=== PATIENT | female | born 1950 | race African-American/Black ===

== ENCOUNTER 2022-06-08 13:51 | Inpatient (IN) | payer MEDICARE, OTHER ==
[~2022-06-08] VITALS: Ht 162.6 cm; Wt 81.6 kg
[2022-06-08] MEDS ORDERED: ACETAMINOPHEN 325MG TABLET PO STA (14:21)
[2022-06-08] MEDS ORDERED: SODIUM CHLORIDE 0.9% 1,000 ML IV ONE (14:30)
[2022-06-08 14:48] LABS: CHLORIDE 109 mEq/L (98-107)
[2022-06-08 14:51] LABS: BASOPHILS % 0.6 % (0.0-2.0); EOSINOPHILS % 5.8 % (0.0-5.0); HEMATOCRIT. 49.5 % (36.0-48.0); LYMPHOCYTES % 31.8 % (20.0-50.0); MEAN CORPUSCULAR HEMOGLOBIN 30.6 pg (28.0-32.0); MEAN CORPUSCULAR VOLUME 94.5 fL (81.0-99.0); MONOCYTES % 9.5 % (2.0-8.0); NEUTROPHILS % 52.3 % (40.0-76.0); PLATELET 141 x1000/uL (130-400); RED BLOOD CELL COUNT 5.24 mill/uL (4.2-5.4); RED CELL DISTRIBUTION WIDTH 14.2 % (11.6-14.6)
[2022-06-08 16:20] LABS: CLARITY URINE CLEAR (CLEAR); COLOR URINE YELLOW (YELLOW); KETONES URINE NEGATIVE (NEGATIVE); LEUKOCYTE ESTERASE URINE NEGATIVE (NEGATIVE); NITRITE URINE NEGATIVE (NEGATIVE); OCCULT BLOOD URINE NEGATIVE (NEGATIVE); PROTEIN URINE 2+ (NEGATIVE); SPECIFIC GRAVITY URINE 1.019 (1.005-1.030)
[2022-06-08] MEDS ORDERED: KETOROLAC 15MG/ML VIAL IV ONE (18:15)
[2022-06-08] MEDS ORDERED: LORAZEPAM 1MG TABLET PO NR (21:00)
[2022-06-08] MEDS: ASPIRIN 81MG TABLET PO SCH (21:37)
[2022-06-09] MEDS: HYDROCODONE/ACETAMINOPHEN 5/325MG TABLET PO PRN ×2 (05:45→21:12)
[2022-06-09] MEDS: ASPIRIN 81MG TABLET PO SCH (09:00)
[2022-06-09] MEDS ORDERED: DEXTROSE 50% WATER 50ML SYRINGE IV PRN (11:00)
[2022-06-09] MEDS ORDERED: ONDANSETRON HCL 4MG/2ML INJ IV PRN (11:00)
[2022-06-09] MEDS ORDERED: ACETAMINOPHEN 325MG TABLET PO PRN (11:00)
[2022-06-09] MEDS ORDERED: NALOXONE HCL 0.4MG/ML VIAL IV PRN (11:15)
[2022-06-09] MEDS: BLOOD SUGAR DIAGNOSTIC STRIP TEST SCH ×3 (11:55→21:12)
[2022-06-09] MEDS: AMLODIPINE 10MG TABLET PO SCH (12:26)
[2022-06-09] MEDS: INSULIN LISPRO 100 UNITS/ML SUBCUT SCH ×3 (12:27→21:45)
[2022-06-09] MEDS ORDERED: METF-874 MT (14:19)
[2022-06-09] MEDS: CLONIDINE 0.1MG TABLET PO SCH ×2 (14:32→21:12)
[2022-06-09 14:33] VITALS: BP 169/88
[2022-06-09 14:34] VITALS: BP 169/88
[2022-06-09 16:00] VITALS: BP 134/68
[2022-06-09 16:44] LABS: HEPATITIS B SURFACE ANTIGEN NEGATIVE
[2022-06-09 20:00] VITALS: BP 139/61
[2022-06-10] VITALS: BP 140/66
[2022-06-10 04:00] VITALS: BP 150/76
[2022-06-10 06:25] LABS: BASOPHILS % 0.7 % (0.0-2.0); EOSINOPHILS % 6.5 % (0.0-5.0); HEMATOCRIT. 45.8 % (36.0-48.0); HEMOGLOBIN. 15.1 g/dL (12.0-16.0); LYMPHOCYTES % 37.1 % (20.0-50.0); MEAN CORPUSCULAR HEMOGLOBIN 30.9 pg (28.0-32.0); MEAN CORPUSCULAR VOLUME 93.6 fL (81.0-99.0); MEAN PLATELET VOLUME 9.3 fl (7.4-10.4); MONOCYTES % 8.7 % (2.0-8.0); PLATELET 126 x1000/uL (130-400); RED BLOOD CELL COUNT 4.89 mill/uL (4.2-5.4); RED CELL DISTRIBUTION WIDTH 14.3 % (11.6-14.6)
[2022-06-10] MEDS: CLONIDINE 0.1MG TABLET PO SCH (06:32)
[2022-06-10] MEDS: BLOOD SUGAR DIAGNOSTIC STRIP TEST SCH ×2 (06:35→11:38)
[2022-06-10] MEDS: INSULIN LISPRO 100 UNITS/ML SUBCUT SCH ×2 (06:35→11:57)
[2022-06-10 06:50] LABS: CHLORIDE 106 mEq/L (98-107)
[2022-06-10 08:00] VITALS: BP 112/61
[2022-06-10] MEDS: ASPIRIN 81MG TABLET PO SCH (09:09)
[2022-06-10] MEDS: AMLODIPINE 10MG TABLET PO SCH (09:10)
[2022-06-10] MEDS ORDERED: AMLO10TA80 PO (11:48)
[2022-06-10] MEDS ORDERED: ASPI-1160 PO (11:48)
[2022-06-10] MEDS ORDERED: CLON0.1T PO (11:48)
[2022-06-10 12:00] VITALS: BP 140/81
[2022-06-10 12:01] VITALS: BP 140/81
== END 2022-06-10 13:15 | disposition home or self-care (01) | DRG 312 ==
LOC: ER 13:51 → EDBEDREQ 18:38 → MICUSO 19:02 → 7EST 06-09 13:57
PROVIDERS: ADMIT Internal Medicine; ATTEND Internal Medicine
DX: I95.1 Orthostatic hypotension (principal); E11.51 Type 2 diabetes mellitus with diabetic peripheral angiopathy without gangrene; I10 Essential (primary) hypertension; I25.10 Atherosclerotic heart disease of native coronary artery without angina pectoris; G89.29 Other chronic pain; E66.01 Morbid (severe) obesity due to excess calories; G47.33 Obstructive sleep apnea (adult) (pediatric); I16.0 Hypertensive urgency; J45.909 Unspecified asthma, uncomplicated; M54.10 Radiculopathy, site unspecified; M54.42 Lumbago with sciatica, left side; M19.90 Unspecified osteoarthritis, unspecified site; I25.2 Old myocardial infarction; Z95.5 Presence of coronary angioplasty implant and graft; Z68.30 Body mass index [BMI] 30.0-30.9, adult; Z82.49 Family history of ischemic heart disease and other diseases of the circulatory system
CPT/HCPCS: 36415; 70544; 70547; 70551; 71045; 80048; 80053; 81003; 82962; 83605; 84484; 85025; 86803; 87340; 93005; 97162; 99285; J1815; J1885; J7030